=== PATIENT | female | born 1950 | race Caucasian/White ===

== ENCOUNTER 2018-05-01 09:08 | Outpatient (CLI) | payer MEDICARE, OTHER ==
--- NOTE | 2018-05-01 10:05 | RAD ---
TWO VIEWS CHEST: Date: 05-01-18 Comparison: 11-17-15 History: Pneumonia. FINDINGS: There is no pneumothorax or pleural fluid and no focal consolidation or alveolar edema. Heart and med iastinal contours appear within normal limits. Mild increased linear interstitial density is noted, stable. Incompletely imaged lap band is present. IMPRESSION: Stable appearance of the chest. POS: [facility]
== END 2018-05-01 09:09 | disposition home or self-care (01) ==
LOC: RAD 09:08
PROVIDERS: ATTEND Internal Medicine Critical Care Medicine
DX: R06.00 Dyspnea, unspecified (principal)
CPT/HCPCS: 71046

== ENCOUNTER 2019-08-28 05:48 | Outpatient (CLI) | payer MEDICARE, OTHER ==
[2019-08-28 13:39] LABS: #Basophils 0.1 thou/uL (0.0-0.2); #Eosinphils 0.2 thou/uL (0.0-0.7); #Lymphocytes 1.8 thou/uL (1.20-3.40); #Monocytes 0.6 thou/uL (0.11-0.59); #Neutrophils 3.8 thou/uL (1.40-6.50); %Basophils 0.8 % (0.0-1.0); %Eosinophils 3.5 % (0.0-10.0); %Lymphocytes 28.3 % (21.0-51.0); %Monocytes 8.9 % (0.0-10.0); %Neutrophils 58.5 % (42.0-75.0); Hemoglobin 14.5 g/dL (12.0-16.0); Mean Corpuscular Hemoglobin 33.7 pg (27.0-31.0); Mean Corpuscular Volume 99.2 fL (78.0-98.0); Mean Platelet Volume 7.1 fL (7.4-10.4); Platelet Count 259 thou/uL (130-400); RBC Distribution Width 11.7 % (11.5-14.5); White Blood Cell (WBC) Count 6.4 thou/uL (4.8-10.8)
[2019-08-28 14:02] LABS: Anion Gap 12 mmol/L (10-20); BUN (Urea Nitrogen) 18 mg/dL (9.8-20.1); Calc. Creatinine Clearance 0 mL/min (70-130); Calcium 9.4 mg/dL (7.8-10.44); Carbon Dioxide 28 mmol/L (23-31); Chloride 102 mmol/L (98-107); Estimated GFR-MDRD 64; Glucose 87 mg/dL (80-115); Potassium 3.9 mmol/L (3.5-5.1); Sodium 138 mmol/L (136-145)
== END 2019-08-28 05:49 | disposition home or self-care (01) ==
LOC: LABBT 05:48
PROVIDERS: ATTEND Surgery
DX: Z01.818 Encounter for other preprocedural examination (principal); K40.20 Bilateral inguinal hernia, without obstruction or gangrene, not specified as recurrent
CPT/HCPCS: 80048; 85025; 93005; 93010

== ENCOUNTER 2019-08-29 10:53 | Day surgery (SDC) | payer MEDICARE, OTHER ==
[2019-08-28 11:45] VITALS: BMI 40.4
[~2019-08-29 10:53] MED LIST: Dexamethasone 20 MG/5 ML VIAL ONE; EPHEDRINE 25 MG/5 ML SYRINGE ONE; Ketorolac Tromethamine 30 MG/ML VIAL ONE; Lidocaine 1% PF 5 ML VIAL ONE; PHENYLEPHRINE-NS 100 MCG/ML 10 ML SYRINGE ONE; PROPOFOL 200 MG/20 ML VIAL ONE; Rocuronium Bromide 10 MG/ML (10ML VIAL) ONE; diphenhydrAMINE 50 MG/ML VIAL ONE
[2019-08-29] MEDS ORDERED: Lidocaine 2% Jelly 5 ML TUBE ONE (12:05)
[2019-08-29] MEDS ORDERED: Fentanyl 100 MCG/2 ML VIAL ONE ×2 (12:22→15:38)
[2019-08-29] MEDS ORDERED: Bupivacaine PF 0.5% 30 ML VIAL ONE ×4 (12:23→14:28)
[2019-08-29] MEDS ORDERED: Lidocaine 1% w/Epinephrine 1:100K 20 ML VIAL ONE (12:23)
[2019-08-29] MEDS ORDERED: HYDROcodone/Acetaminophen 5/325 mg Tablet ONE (16:52)
--- NOTE | 2019-08-30 10:34 | OP ---
DATE OF PROCEDURE: 08/29/2019 PREOPERATIVE DIAGNOSES: 1. Bilateral inguinal hernia. 2. Dysphagia. 3. Other complication of gastric band. POSTOPERATIVE DIAGNOSES: 1. Bilateral inguinal hernia. 2. Dysphagia. 3. Other complication of gastric band. PROCEDURES PERFORMED: 1. Laparoscopic removal of gastric band and subcutaneous port, diagnostic laparoscopy and attempted da Chencho robot inguinal hernia repair (not able to be performed secondary to dense lower pelvis adhesions). 2. Bilateral inguinal hernia repair open with mesh, PHS extended. ANESTHESIA: General. ESTIMATED BLOOD LOSS: Minimal. COMPLICATIONS: None. FINDINGS: Dense adhesions in the lower abdomen below the umbilicus. BRIEF HISTORY: The patient is a 69-year-old female with a history of upper abdominal pain and dysphagia, had a CT scan without workup revealing bilateral inguinal hernias. She noted symptomatic bulge in the bilateral groin. She had, had previous gastric band placement. She has had ongoing dysphagia with that unable to swallow. There was no saline in the port. DESCRIPTION OF PROCEDURE: The patient was taken to the operating room and laid supine on the operating room table. After general anesthetic was obtained, the abdomen was shaved, prepped, and draped in a sterile fashion. Left subcostal 5-mm Optiview trocar was placed in usual fashion and high-flow pneumoperitoneum was obtained. Looking back at the umbilicus, there were dense adhesions. These adhesions have the serosa of the small bowel intimately associated with previous ventral hernia repair mesh. These adhesions looked difficult to take down and look like they would be complicated by bowel injury. Because the patient did not have any active obstruction, decision was made to not perform a laparoscopic inguinal hernia repair. Three other 5-mm ports were placed in the upper abdomen and her liver was lifted up to expose her previous lap band. The peritoneum was opened on top of the cuff of the lap band. The lap band previously was able to be unbuckled. The tubing was cut as it exits the abdomen. The lap band was able to be removed from around the stomach. There was no obvious damage to the stomach. In the area where the tubing exits the abdomen, an incision was made and the lap band was removed from this location. All port sites were infiltrated using local anesthetic. All ports were removed under camera visualization. Pneumoperitoneum was let down. Incision near the lap band port was opened and the lap band ports removed from on top of the muscle and its tubing going into the abdomen was removed. The lap band and port were able to be fully reconstructed on the back table without missing pieces. All incisions were closed using 4-0 Monocryl and Dermabond. Next, bilateral oblique lower abdominal incisions were made above the pubic tubercle. Cautery was dissected down to Suzanne's to expose the external oblique. External oblique fibers were opened along the course of the external ring. Bilateral ilioinguinal nerve was found and segmentally removed to prevent postoperative pain. There were bilateral direct hernias. Cord structures were mobilized on the pubic tubercle using a Bro drain. This was the round ligament, which was cauterized and transected on both sides. PHS extended mesh brought into the sterile field and the underlay was placed in bilateral preperitoneal space. The top of the mesh was sewn in the floor of the inguinal canal distally to the pubic tubercle, medially to the transverse arch, laterally to the shelving edge of inguinal ligament using permanent-braided suture. The extra mesh was tacked back into the external oblique proximally. The wounds were irrigated. Local anesthetic was applied. Tunneled catheter for postop pain inserted from above bilateral incision, left on top of the mesh. External oblique was closed using 3-0 Vicryl, Suzanne was closed using 3-0 Vicryl, skin was closed using running 4-0 Monocryl and Dermabond. The patient was sent to Recovery in stable condition. All instrument counts, needle counts, and lap counts were correct. Job ID: [id number]
== END 2019-08-29 17:30 | disposition home or self-care (01) ==
LOC: SDC 10:53
PROVIDERS: ATTEND Surgery
PROC: 0YUA0JZ Supplement Bilateral Inguinal Region with Synthetic Substitute, Open Approach (ICD-10-PCS; principal; 2019-08-29)
PROC: 0DP64CZ Removal of Extraluminal Device from Stomach, Percutaneous Endoscopic Approach (ICD-10-PCS; 2019-08-29)
DX: K40.20 Bilateral inguinal hernia, without obstruction or gangrene, not specified as recurrent (principal); T85.9XXA Unspecified complication of internal prosthetic device, implant and graft, initial encounter; R13.10 Dysphagia, unspecified; N73.6 Female pelvic peritoneal adhesions (postinfective); I10 Essential (primary) hypertension; E78.5 Hyperlipidemia, unspecified; F32.9 Major depressive disorder, single episode, unspecified; F41.9 Anxiety disorder, unspecified; M19.90 Unspecified osteoarthritis, unspecified site; Z87.891 Personal history of nicotine dependence; Z79.899 Other long term (current) drug therapy; Z91.013 Allergy to seafood; Z91.048 Other nonmedicinal substance allergy status; Z98.890 Other specified postprocedural states
CPT/HCPCS: 43774; 49505; A4306; C1781; J0690; J1100; J1200; J1885; J2001; J2704; J3010; S0020